=== PATIENT | male | born 1995 | race African-American/Black ===

== ENCOUNTER 2022-02-07 14:31 | Outpatient (CLI) | payer OTHER, SELFPAY ==
--- NOTE | ~2022-02-07 | XR_ITS ---
XR hip RT min 2V DATE: 02/07/2022 15:56 INDICATION: Right hip pain TECHNIQUE: AP and lateral views with gonadal shielding COMPARISON: None FINDINGS: No fracture or dislocation, avascular necrosis or bone destruction of the right hip. Right hip joint space appears preserved. Normal alignment at the pubic symphysis and right sacroiliac joint . IMPRESSION: Negative Reviewed, dictated and finalized at location A. ER TOOL SHARPENER IMPRESSION: Negative
--- NOTE | ~2022-02-07 | XR_ITS ---
EXAMINATION: XR thoracic spine min 4V INDICATION: Thoracic back pain TECHNIQUE: Three views of the thoracic spine are obtained. COMPARISON: None available FINDINGS: There is no fracture, dislocation, or subluxation. The vertebral body heights and intervert ebral disc spaces are normal. There is thoracolumbar dextrocurvature. IMPRESSION: 1. No acute osseous abnormality. Reviewed, dictated and finalized at location B. IRER FINISHED METAL
--- NOTE | ~2022-02-07 | XR_ITS ---
EXAMINATION: XR lumbar spine 2-3V DATE: 02/07/2022 15:56 INDICATION: Low back pain TECHNIQUE: Anteroposterior and lateral views of the lumbar spine, and cone-down lateral view of the l umbosacral junction were obtained. COMPARISON: None. FINDINGS: There is no fracture, dislocation, or subluxation. The vertebral body heights and alignment are normal. Thoracolumbar dextrocurvature is noted. IMPRESSION: 1. No acute osseous abnormality. Reviewed, dictated and finalized at location B. ING ROLL OPERATOR
--- NOTE | ~2022-02-07 | XR_ITS ---
EXAMINATION: XR ribs BI 3V w CXR 2V INDICATION: Chest pain TECHNIQUE: PA and lateral views of the chest and 3 views of the bilateral ribs were obtained. COMPARISON: None. FINDINGS: The lungs are free of acute opacities. No pleural effusion or pneumothorax. The cardiomedia stinal silhouette is normal. The visualized bones and soft tissues are unremarkable. No displaced ri b fracture is identified. IMPRESSION: 1. No acute cardiopulmonary abnormality or evidence of displaced rib fracture. Reviewed, dictated and finalized at location B. CTOR PROSPECT
[2022-02-07 16:43] LABS: Appearance Urine Clear (Clear); Bilirubin Urine Negative (Negative); Blood Urine Negative (Negative); Color Urine Yellow (Yellow); Glucose Urine UA Negative (Negative); Ketones Urine Negative (Negative); Leukocyte Esterase Ur Negative LEU/UL (NEGATIVE); Nitrate Urine Negative (Negative); Protein Urine Negative (Negative); Specific Grav Ur 1.025 (1.001-1.035); Urobilinogen Urine 0.2 mg/dL (<2.0); pH Urine 6.5 (5.0-9.0)
[2022-02-07 16:44] LABS: Add Urine Microscopic? NO
[2022-02-07 16:56] LABS: Alanine Aminotransferase 18 U/L (6-50); Albumin Level 5.2 g/dL (3.5-5.1); Alkaline Phosphatase 107 U/L (38-126); Anion Gap 9 mmol/L (8-16); Aspartate Amino Transferase 27 U/L (17-59); Bilirubin,Total 0.4 mg/dL (0.2-1.3); Blood Urea Nitrogen 13 mg/dL (9-20); CRP < 0.5 mg/dL (<1.0); Calcium 9.4 mg/dL (8.4-10.2); Carbon Dioxide 30 mmol/L (22-30); Chloride 102 mmol/L (98-107); Cholesterol 198 mg/dL (0-200); Creatine Kinase 248 U/L (55-170); Estimated Glomerular Filt Rate > 60; Glucose 96 mg/dL (65-110); HDL Direct 72 mg/dL; Hemoglobin A1C 5.6 % (<5.7); Potassium 4.1 mmol/L (3.4-5.0); Rheumatoid Factor < 8.6 IU/ML (<12); Sodium 141 mmol/L (137-145); Triglycerides 97 mg/dL (<150)
[2022-02-07 16:59] LABS: LDL Cholesterol Direct 97 mg/dL
[2022-02-07 17:06] LABS: Free T4 Free Thyroxine 0.94 ng/mL (0.78-2.19); Vitamin D 25 Hydroxy 19.5 ng/mL
[2022-02-07 17:11] LABS: Creatinine Urine 198.5 mg/dL
[2022-02-07 17:16] LABS: MALB Creatinine Ratio 4.5 mg/g (0-30); Microalbumin Urine Random 8.9 mg/L (0-16.7)
[2022-02-07 17:27] LABS: HIV 1/2 Ab P24 Ag Result Negative (Negative)
[2022-02-07 17:55] LABS: Folic Acid 9.9 ng/mL (2.76->20)
[2022-02-08 07:49] LABS: Hematocrit 41.5 % (42.0-52.0); Hemoglobin 14.4 g/dL (14.0-18.0); Mean Corpuscular HGB Conc 34.7 g/dl (32-36); Mean Corpuscular Hemoglobin 30.9 pg (26-34); Mean Corpuscular Volume 89.1 fl (80-100); Mean Platelet Volume 9.8 fl (7.4-10.4); Platelet Count Result 335 k/mm3 (150-375); Red Blood Count 4.66 M/mm3 (4.6-6.20); Red Cell Distribution Width 13.4 % (11.5-14.5); White Blood Count 6.1 K/mm3 (4.5-10.0)
[2022-02-08 08:50] LABS: Erythrocyte Sedimentation Rate 4 mm/hr (0-20)
[2022-02-09 16:18] LABS: Rapid Plasma Reagin Non-Reactive (NonReactive)
== END 2022-02-07 14:32 | disposition home or self-care (01) ==
PROVIDERS: PCP Emergency Medicine; Visit Provider Emergency Medicine
DX: M25.551 Pain in right hip (principal); M54.50 Low back pain, unspecified; R07.9 Chest pain, unspecified
CPT/HCPCS: 36415; 71046; 71110; 72074; 72100; 73502; 80053; 80061; 81003; 82043; 82306; 82550; 82607; 82746; 83036; 84207; 84439; 84443; 85027; 85652; 86038; 86140; 86430; 86592; 86703; 87491; 87591; G0432

== ENCOUNTER 2022-05-05 08:00 | Outpatient (CLI) | payer OTHER, SELFPAY ==
--- NOTE | ~2022-05-05 | XR_ITS ---
EXAMINATION: XR ribs BI 3V w CXR 2V INDICATION: Rib pain, tobacco use TECHNIQUE: PA and lateral views of the chest and 3 views of the bilateral ribs were obtained. COMPARISON: 02/07/2022 FINDINGS: The lungs are free of acute opacities. No pleural effusion or pneumothorax. The cardiomedia stinal silhouette is normal. The visualized bones and soft tissues are unremarkable. No displaced rib fracture is identified. IMPRESSION: 1. No acute cardiopulmonary abnormality or evidence of displaced rib fracture. Reviewed, dictated and finalized at location L. CTOR OF PERSONNEL
[2022-05-05 08:56] LABS: CRP < 0.5 mg/dL (<1.0)
[2022-05-07 20:12] LABS: Albumin 4.8 g/dL (3.8-4.8); Alpha 1 Globulin 0.3 g/dL (0.2-0.3); Alpha 2 Globulin 0.6 g/dL (0.5-0.9); Beta 1 Globulin 0.4 g/dL (0.4-0.6); Gamma Globulin 1.1 g/dL (0.8-1.7); Protein, Total 7.6 g/dL (6.1-8.1)
[2022-05-10 13:22] LABS: Aldolase 6.2 U/L (<=8.1)
== END 2022-05-05 08:01 | disposition home or self-care (01) ==
PROVIDERS: PCP Emergency Medicine; Visit Provider Emergency Medicine
DX: Z00.00 Encounter for general adult medical examination without abnormal findings (principal); R07.81 Pleurodynia; Z72.0 Tobacco use
CPT/HCPCS: 36415; 71046; 71110; 82085; 84155; 84165; 86140

== ENCOUNTER 2022-08-25 12:23 | Outpatient (CLI) | payer OTHER, SELFPAY ==
[2022-08-25 13:08] LABS: Creatine Kinase 258 U/L (55-170)
== END 2022-08-25 12:24 | disposition home or self-care (01) ==
LOC: ANHLAB 12:26
PROVIDERS: PCP Emergency Medicine; Visit Provider Emergency Medicine
DX: R60.9 Edema, unspecified (principal)
CPT/HCPCS: 36415; 82550

== ENCOUNTER 2022-09-01 13:51 | Outpatient (CLI) | payer OTHER, SELFPAY ==
--- NOTE | ~2022-09-01 | US_ITS ---
EXAMINATION: US soft tissue lower back DATE: 09/01/2022 14:18 INDICATION: Subcutaneous mass at the right back TECHNIQUE: Multiple grayscale and Doppler ultrasound images of the right paraspinal thoracolumbar reg ion of concern were obtained. COMPARISON: None FINDINGS/IMPRESSION: Normal appearance to the subcutaneous fat and underlying musculature at the region of concern. No abn ormal masses or fluid collections identified. Reviewed, dictated and finalized at location A.
== END 2022-09-01 13:52 | disposition home or self-care (01) ==
PROVIDERS: PCP Emergency Medicine; Visit Provider Emergency Medicine
DX: R22.2 Localized swelling, mass and lump, trunk (principal)
CPT/HCPCS: 76705

== ENCOUNTER 2022-09-05 09:46 | Outpatient (CLI) | payer OTHER, SELFPAY ==
[2022-09-05 11:19] LABS: HIV 1/2 Ab P24 Ag Result Negative (Negative)
[2022-09-05 13:16] LABS: Rapid Plasma Reagin Non-Reactive (NonReactive)
== END 2022-09-05 09:47 | disposition home or self-care (01) ==
LOC: ANHLAB 09:48
PROVIDERS: PCP Emergency Medicine; Visit Provider Emergency Medicine
DX: Z72.51 High risk heterosexual behavior (principal)
CPT/HCPCS: 36415; 86592; 86703; 87491; 87591; G0432

== ENCOUNTER 2023-03-13 13:16 | Outpatient (CLI) | payer OTHER, SELFPAY ==
[2023-03-13 14:08] LABS: Hematocrit 39.8 % (42.0-52.0); Hemoglobin 13.5 g/dL (14.0-18.0); Mean Corpuscular HGB Conc 33.9 g/dl (32-36); Mean Corpuscular Hemoglobin 30.7 pg (26-34); Mean Corpuscular Volume 90.5 fl (80-100); Mean Platelet Volume 9.5 fl (7.4-10.4); Platelet Count Result 266 k/mm3 (150-375); Red Cell Distribution Width 13.3 % (11.5-14.5); White Blood Count 4.5 K/mm3 (4.5-10.0)
[2023-03-13 14:22] LABS: Alanine Aminotransferase 15 U/L (6-50); Albumin Level 4.9 g/dL (3.5-5.1); Alkaline Phosphatase 63 U/L (38-126); Anion Gap 7 mmol/L (8-16); Aspartate Amino Transferase 26 U/L (17-59); Bilirubin,Total 0.5 mg/dL (0.2-1.3); Blood Urea Nitrogen 11 mg/dL (9-20); Calcium 9.8 mg/dL (8.4-10.2); Carbon Dioxide 27 mmol/L (22-30); Chloride 104 mmol/L (98-107); Cholesterol 169 mg/dL (0-200); Creatine Kinase 237 U/L (55-170); Estimated Glomerular Filt Rate > 60; Glucose 73 mg/dL (65-110); HDL Direct 54 mg/dL; Sodium 138 mmol/L (137-145); Triglycerides 39 mg/dL (<150)
[2023-03-13 14:25] LABS: Appearance Urine Clear (Clear); Bacteria Urine None Seen /hpf; Bilirubin Urine Negative (Negative); Blood Urine Negative (Negative); Color Urine Yellow (Yellow); Glucose Urine UA Negative (Negative); Ketones Urine Negative (Negative); Leukocyte Esterase Ur Trace LEU/UL (NEGATIVE); Nitrate Urine Negative (Negative); Non Pathogenic Casts 0-2; Protein Urine Negative (Negative); RBC Urine 0-2 /hpf (0-2); Specific Grav Ur 1.011 (1.001-1.035); Squamous Epithelial Cell Urine None seen /hpf (Few); Urobilinogen Urine 0.2 mg/dL (<2.0); WBC Urine 0-5 /hpf (0-3)
[2023-03-13 14:27] LABS: Add Urine Microscopic? YES
[2023-03-13 14:33] LABS: LDL Cholesterol Direct 90 mg/dL
[2023-03-13 14:51] LABS: Hemoglobin A1C 5.3 % (<5.7)
[2023-03-13 14:53] LABS: Thyroid Stimulating Hormone 0.737 uIU/mL (0.465-4.680)
[2023-03-13 15:03] LABS: HIV 1/2 Ab P24 Ag Result Negative (Negative)
[2023-03-13 15:04] LABS: Vitamin D 25 Hydroxy 23.3 ng/mL
[2023-03-13 15:12] LABS: Creatinine Urine 87.8 mg/dL
[2023-03-13 15:23] LABS: Microalbumin Urine Random < 6.0 mg/L (0-16.7)
[2023-03-13 15:24] LABS: MALB Creatinine Ratio < 6.8 mg/g (0-30)
[2023-03-13 16:08] LABS: Chlamydia trachomatis NOT DETECTED (NOT DETECTE); Neisseria gonorrhoeae PCR NOT DETECTED (NOT DETECTE)
[2023-03-14 14:30] LABS: Rapid Plasma Reagin Non-Reactive (NonReactive)
== END 2023-03-13 13:17 | disposition home or self-care (01) ==
LOC: ANHLAB 13:18
PROVIDERS: PCP Emergency Medicine; Visit Provider Emergency Medicine
DX: M54.50 Low back pain, unspecified (principal); Z00.00 Encounter for general adult medical examination without abnormal findings
CPT/HCPCS: 36415; 80053; 80061; 81001; 82043; 82306; 82550; 83036; 84439; 84443; 85027; 86592; 86703; 87491; 87591; G0432

== ENCOUNTER 2024-08-12 08:01 | Outpatient (CLI) | payer OTHER, SELFPAY ==
--- OUTSIDE RECORDS SUMMARY | 2024-08-12 08:06 | XMS_ITS | Clinical Summary ---
Author Organization [facility] Address [address] [place] [address] Care Team Providers Care Sales Representative Name Role Phone Unavailable Primary Care Provider Unavailabl e Source Comments [facility] [employer],non-owned Affiliates and Associated Physician Practices is amultiple site organization consisting of ambulatory clinics and hospital sitesin [place], [place], [place] and [place]. This disclosure is being madepursuant to the Care Everywhere program and may not contain all information available regarding this patient. Last updated 17.[facility] [employer] Allergies No known active allergies Medications * Be aware that medications may not be up to date on this document. Alwaysverify current medications with the patient. ketoconazole (Nizoral) 2 % cream APPLY TOPICALLY TO THE AFFECTED AREA DAILY FOR 28 DAYS 3 Active Active Problems No known active problems Family History Medical History Relation Name Comments Diabetes - Type 2 Mother Relation Name Status Comments Father Alive Mother Alive Social History Tobacco Use Types Packs/Day Years Used Date Smoking Tobacco: Never Smokeless Tobacco: Never Tobacco Cessation:Counseling Given: Not Answered Alcohol Use Standard Drinks/Week Comments Never 0 (1 standard drink = 0.6 oz pur e alcohol) Sex and Gender Information Value Date Recorded Sex Assigned at Not on file Legal Sex Male 1:49 PM CDT Gender Identity Not on file Sexual Orientation Not on file Last Filed Vital Signs Vital Sign Reading Time Taken Comments Blood Pressure 120/78 04/05/2023 3:25 PM MELANGEUR OPERATOR Pulse 68 04/05/2023 3:25 PM MELANGEUR OPERATOR Temperature 36.7 C (98 F) 04/05/2023 3:25 PM MELANGEUR OPERATOR Respiratory Rate 16 04/05/2023 3:25 PM MELANGEUR OPERATOR Oxygen Saturation 98% 04/05/2023 3:25 PM MELANGEUR OPERATOR Inhaled Oxygen Concentration - - Weight 62.1 kg (137 lb) 04/05/2023 3:25 PM MELANGEUR OPERATOR Height 170.2 cm (5' 7 ) 04/05/2023 3:25 PM MELANGEUR OPERATOR Body Mass Index 21.46 04/05/2023 3:25 PM MELANGEUR OPERATOR Plan of Treatment Health Maintenance Due Date Last Done Comments HIV SCREENING 2009 HEPATITIS C SCREENING 04/09/2012 DTAP/TDAP/TD VACCINES (1 - Tdap) 2013 HEPATITIS B VACCINE (1 of 3 - 19+ 3-dose series) 2013 COVID-19 VACCINE (1 - 2023-2 5 season) 2023 DEPRESSION SCREENING 04/03/2024 INFLUENZA VACCINE (Season Ended) 2024 ZOSTER VACCINE (1 of 2) 2044 HIB VACCINE Aged Out No longer eligi ble based on patient's age to complete this topic HPV VACCINE Aged Out No longer eligi ble based on patient's age to complete this topic MENINGOCOCCAL (Group B) VACC INE SHARED DECISION-MAKING Aged Out No longer eligibl e based on patient's age to complete this topic MENINGOCOCCAL GROUPS A/C/Y/W VACCINE Aged Out No longer eligible b ased on patient's age to complete this topic PNEUMOCOCCAL VACCINE Aged Out No long er eligible based on patient's age to complete this topic Insurance
[2024-08-12 08:47] LABS: Add Urine Microscopic? YES; Appearance Urine Clear (Clear); Bacteria Urine None Seen /hpf; Bilirubin Urine Negative (Negative); Blood Urine Negative (Negative); Color Urine Yellow (Yellow); Glucose Urine UA Negative (Negative); Ketones Urine Negative (Negative); Leukocyte Esterase Ur Trace LEU/UL (Negative); Nitrate Urine Negative (Negative); Non Pathogenic Casts 0-2; Protein Urine Negative (Negative); RBC Urine 0-2 /hpf (0-2); Specific Grav Ur 1.015 (1.001-1.035); Squamous Epithelial Cell Urine None Seen /hpf (Few); Urobilinogen Urine 0.2 mg/dL (<2.0)
[2024-08-12 08:54] LABS: Hematocrit 41.9 % (42.0-52.0); Hemoglobin 13.9 g/dL (14.0-18.0); Mean Corpuscular HGB Conc 33.2 g/dl (32-36); Mean Corpuscular Hemoglobin 30.5 pg (26-34); Mean Corpuscular Volume 91.9 fl (80-100); Mean Platelet Volume 8.9 fl (7.4-10.4); Platelet Count Result 311 k/mm3 (150-375); Red Blood Count 4.56 M/mm3 (4.6-6.20)
[2024-08-12 09:09] LABS: Alanine Aminotransferase 27 U/L (6-50); Albumin Level 5.2 g/dL (3.5-5.1); Alkaline Phosphatase 85 U/L (38-126); Anion Gap 12 mmol/L (4-12); Aspartate Amino Transferase 37 U/L (17-59); Bilirubin,Total 0.3 mg/dL (0.2-1.3); Blood Urea Nitrogen 16 mg/dL (9-20); Calcium 9.6 mg/dL (8.4-10.2); Carbon Dioxide 26 mmol/L (22-30); Chloride 103 mmol/L (98-107); Cholesterol 171 mg/dL (0-200); Estimated Glomerular Filt Rate > 60; Glucose 98 mg/dL (65-110); HDL Direct 76 mg/dL; Hemoglobin A1C 5.4 % (<5.7); Potassium 4.1 mmol/L (3.4-5.0); Sodium 141 mmol/L (137-145); Triglycerides 55 mg/dL (<150)
[2024-08-12 09:21] LABS: LDL Cholesterol Direct 70 mg/dL
[2024-08-12 09:36] LABS: Free T4 Free Thyroxine 1.03 ng/dL (0.78-2.19); Vitamin D 25 Hydroxy 25.1 ng/mL
[2024-08-12 09:40] LABS: Syphilis IgG/IgM Antibody Negative (Negative)
[2024-08-12 09:42] LABS: Thyroid Stimulating Hormone 0.669 uIU/mL (0.465-4.680)
[2024-08-12 09:44] LABS: Hepatitis B Surface Antigen Negative (Negative)
[2024-08-12 09:50] LABS: HAV RESULT Negative (Negative); Hepatitis B Core IgM Result Negative (Negative)
[2024-08-12 09:50] LABS: Creatinine Urine 94.2 mg/dL
[2024-08-12 09:53] LABS: HIV 1/2 Ab P24 Ag Result Negative (Negative)
[2024-08-12 10:02] LABS: Hepatitis C Virus Antibody Negative (Negative)
[2024-08-12 10:09] LABS: Chlamydia trachomatis NOT DETECTED (NOT DETECTE); Neisseria gonorrhoeae PCR NOT DETECTED (NOT DETECTE)
[2024-08-12 10:41] LABS: Microalbumin Urine Random < 6.0 mg/L (0-16.7)
[2024-08-12 10:42] LABS: MALB Creatinine Ratio < 6.4 mg/g (0-30)
== END 2024-08-12 08:02 | disposition home or self-care (01) ==
LOC: ANHLAB 08:03
PROVIDERS: PCP Emergency Medicine; Visit Provider Emergency Medicine
DX: Z72.51 High risk heterosexual behavior (principal); B35.9 Dermatophytosis, unspecified
CPT/HCPCS: 36415; 80053; 80061; 80074; 81001; 82043; 82306; 83036; 84439; 84443; 85027; 86593; 86703; 87491; 87591; G0432